=== PATIENT | male | born 1965 | race Caucasian/White ===

== ENCOUNTER 2020-11-18 20:46 | Inpatient (IN) ==
[~2020-11-18 20:46] MED LIST: *HR* EPINEPHrine 1 MG/10 ML SYRINGE IVP ONE; *HR* LORazepam 2 MG/ML VIAL IVP ONE; *HR* Midazolam HCl 2 MG/2 ML VIAL IVP ONE; *HR* Propofol 200 MG/20 ML VIAL IVP ONE; *HR* Rocuronium Bromide 50 MG/5 ML VIAL IVP ONE; *HR* Succinylcholine 200 MG/10 ML VIAL IVP ONE
[2020-11-18] MEDS ORDERED: *HR* Ticagrelor 90 MG TABLET ONE (20:49)
[2020-11-18] MEDS ORDERED: *HR* Heparin 5,000 UNIT/ML VIAL ONE (20:49)
[2020-11-18] MEDS ORDERED: 0.9 % Sodium Chloride 1,000 ML ONE ×2 (20:50→22:00)
[2020-11-18 20:54] VITALS: BP 99/77
[2020-11-18] MEDS ORDERED: *HR* Ticagrelor 90 MG TABLET PO ONE (20:55)
[2020-11-18] MEDS ORDERED: *HR* Heparin 5,000 UNIT/ML VIAL IVP ONE (20:57)
[2020-11-18] MEDS ORDERED: *HR* Heparin 5,000 UNIT/ML VIAL IVP PRN ×2 (20:57)
[2020-11-18] MEDS ORDERED: Heparin 25,000UNIT/250ML 1/2NS 25,000 UNIT/250 ML IV.SOLN IVC SCH (21:00)
[2020-11-18] MEDS ORDERED: 0.9 % Sodium Chloride 2,000 ML ONE ×2 (21:01→22:18)
[2020-11-18] MEDS ORDERED: ISOVUE-370 200 ML INFUS..BTL ONE ×2 (21:01→22:16)
[2020-11-18] MEDS ORDERED: Nitroglycerin 1,000 MCG/5 ML VIAL IV ONE (21:01)
[2020-11-18] MEDS ORDERED: *HR* Heparin 10,000 UNIT/10 ML VIAL ONE ×2 (21:01→23:14)
[2020-11-18] MEDS ORDERED: Heparin 1,000 UNITS/500 mL 500 ML ONE ×3 (21:01→23:20)
[2020-11-18 21:11] LABS: Basophils # 0.1 K/mcL (0.0-0.2); Basophils % 0.6 %; Eosinophils # 0.4 K/mcL (0.0-0.6); Eosinophils % 2.8 %; Hematocrit 42.4 % (37.5-50.1); Hemoglobin 13.6 g/dL (12.9-16.9); Immature Granulocytes % 0.7 % (0-4); Lymphocytes # 6.8 K/mcL (0.6-4.6); Lymphocytes % 42.6 %; Mean Corpuscular HGB Conc 32.1 g/dL (31.6-35.5); Mean Corpuscular Hemoglobin 31.1 pg (28.0-33.3); Mean Corpuscular Volume 96.8 fL (83.0-100.0); Mean Platelet Volume 11.2 fL (9.4-12.4); Monocytes # 1.4 K/mcL (0.0-1.3); Monocytes % 8.5 %; Neutrophils # 7.2 K/mcL (1.6-8.9); Platelet Count 221 K/mcL (140-400); Red Blood Count 4.38 M/mcL (4.19-5.50); Red Cell Distribution Width 13.7 % (11.5-14.5); Segmented Neutrophils % 44.8 %
[2020-11-18] MEDS ORDERED: *HR* Midazolam HCl 2 MG/2 ML VIAL ONE (21:14)
[2020-11-18] MEDS ORDERED: *HR* FentaNYL (PF) 100 MCG/2 ML VIAL ONE (21:14)
[2020-11-18 21:16] LABS: INR 1.1; Prothrombin Time 13.1 Seconds (9.4-12.1)
[2020-11-18 21:19] LABS: Activated Partial Thrombo Time 21.7 Seconds (26.0-36.0); Heparin anti-factor XA UFH < 0.04 IU/mL (0.30-0.70)
[2020-11-18 21:34] LABS: BUN/Creatinine Ratio 14 (6-26); Blood Urea Nitrogen 16 mg/dL (6-20); Carbon Dioxide 23 mEq/L (23-29); Chloride 109 mEq/L (98-107); Glucose 144 mg/dL (70-105); Magnesium 2.1 mg/dL (1.6-2.6); Osmolality,Calculated 296 (280-300); Potassium 3.6 mEq/L (3.5-5.1); Sodium 141 mEq/L (136-145); Troponin I 0.03 ng/mL (< 0.04); eGFR For African Americans > 60 (> 60); eGFR For Non-African Americans > 60 (> 60)
[2020-11-18] MEDS ORDERED: D5% in Water 250 ML ONE ×2 (21:34→22:03)
[2020-11-18] MEDS ORDERED: Heparin 1,000 UNITS/500 mL 1,000 ML ONE (21:50)
[2020-11-18] MEDS ORDERED: *HR* Norepinephrine 4 MG/4 ML VIAL IVC ONE (22:03)
[2020-11-18] MEDS ORDERED: Tirofiban 12.5 MG/250ML 12.5 MG/250 ML BAG ONE (22:40)
[2020-11-18] MEDS ORDERED: *HR* Adenosine 6 MG/2 ML VIAL IVP ONE (23:45)
[2020-11-19] MEDS ORDERED: Heparin 1,000 UNITS/500 mL 500 ML ONE ×2 (00:09→02:30)
[2020-11-19] MEDS ORDERED: WATER IVC ONE (03:00)
[2020-11-19] MEDS ORDERED: D5 IVC ONE (03:00)
[2020-11-19] MEDS ORDERED: HEPARIN IVC ONE (03:00)
[2020-11-19 16:00] LABS: ABG Base Excess -8 mEq/L (-2 to 3); ABG Chloride 113 mEq/L (98-107); ABG Glucose 216 mg/dL (60-95); ABG HCO3 18 mEq/L (21-27); ABG Oxygen Saturation 100 % (95-98); ABG PCO2 42 mmHg (35-45); ABG PH 7.25 pH Units (7.32-7.45); ABG PO2 241 mmHg (85-104); ABG TCO2 20 mEq/L (20-26)
== END 2020-11-19 03:00 | disposition short-term general hospital (02) | DRG 215 ==
LOC: EMEROOARM 20:46 → ICNU 21:18
PROVIDERS: ADMIT Internal Medicine Cardiovascular Disease; ATTEND Internal Medicine Cardiovascular Disease